=== PATIENT | female | born 1935 | race American Indian/Alaskan Native ===

== ENCOUNTER 2017-11-13 09:26 | Outpatient (CLI) | payer MEDICARE ==
[2017-11-13] MEDS ORDERED: LEXISCAN IV ONE ×2 (10:57)
[2017-11-13 12:16] VITALS: BP 174/80
--- NOTE | 2017-11-27 22:05 | Treadmill Report ---
THALLIUM STRESS TEST LEFT VENTRICLE: Left ventricular chamber size is within normal spread. Perfusion study demonstrates fairly homogeneous uptake of the tracer in all segments. There is a small basal inferior defect, mild intensity, of uncertain significance. Gated analysis demonstrates normal left ventricular systolic function, ejection fraction of 64%. CONCLUSION: Suboptimal perfusion study, no demonstrable ischemic coronary disease. Negative study. JOB# [id number] CA/NTS
== END 2017-11-13 09:27 | disposition home or self-care (01) ==
LOC: CARD 09:26
PROVIDERS: ATTEND Internal Medicine
DX: I25.810 Atherosclerosis of coronary artery bypass graft(s) without angina pectoris (principal)
CPT/HCPCS: 78452; 93017; A9502; J2785

== ENCOUNTER 2018-07-22 12:09 | Emergency (ER) | payer MEDICARE ==
--- NOTE | 2018-07-22 12:17 | Emergency Department Report ---
Chief Complaint: Nausea/Vomiting/Diarrhea Stated Complaint: DEHYDRATION Time Seen by Provider: 07/22/18 12:13 - HPI History of Present Illness: This is a 82 y.o. female that presents to the ER for urinary retention for 12 hours. PMH: DM, CHF, FL, HTN Patient reports everything she eat or drinks come right back up. Reports upper abdominal discomfort. - Exam Vital Signs: Vital Signs 07/22/18 12:13 Temperature 97.8 F Pulse Rate 72 Respiratory 18 Rate Blood Pressure 104/65 O2 Sat by Pulse 96 Oximetry MSE screening note: Focused history and physical exam performed. Due to findings the following was ordered: labs and abdominal series Main ED for further evaluation. ED Disposition for MSE Condition: Stable
[2018-07-22 13:14] LABS: Basophils % (Auto) 0.4 % (0.0-1.8); Eosinophils # (Auto) 0.1 K/mm3 (0.0-0.4); Eosinophils % (Auto) 1.4 % (0.0-4.3); Hematocrit 32.9 % (30.3-42.9); Hemoglobin 10.9 gm/dl (10.1-14.3); Lymphocytes % (Auto) 14.3 % (13.4-35.0); Mean Corpuscular HGB Conc 33 % (30-34); Mean Corpuscular Volume 83 fl (79-97); Monocytes # (Auto) 0.5 K/mm3 (0.0-0.8); Monocytes % (Auto) 6.7 % (0.0-7.3); Platelet Count 201 K/mm3 (140-440); Red Blood Count 3.97 M/mm3 (3.65-5.03); Red Cell Distribution Width 15.3 % (13.2-15.2)
[2018-07-22] MEDS ORDERED: NACL 0.9% 1000 ML 1,000 ML IV ONE ×2 (13:32→15:56)
[2018-07-22 13:40] LABS: Albumin 3.5 g/dL (3.9-5); Calcium 8.8 mg/dL (8.4-10.2)
--- NOTE | 2018-07-22 13:41 | Emergency Department Report ---
ED N/V/D HPI - General Chief complaint: Nausea/Vomiting/Diarrhea Stated complaint: DEHYDRATION Time Seen by Provider: 07/22/18 12:13 Source: patient Mode of arrival: Wheelchair Limitations: Physical Limitation - History of Present Illness Initial comments: Mrs. Leslie Schafer is a very pleasant 82-year-old female with history of diabetes mellitus, coronary artery disease, dyslipidemia who presents with nausea and vomiting after outpatient surgery on . Human Services Supervisor Dr. Wale Pino perform outpatient surgery on her right foot. She had multiple severely curled toes which required straightening and pinning. THe procedure was performed with local anesthesia. Foot Miter Operator was on [facility]. 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 She continued to have nausea vomiting for the past 3 days. She has not urinated since 1 AM this morning. She does have a history of dehydration. She denies abdominal pain. Denies fever. She was prescribed Keflex and tramadol. She does have drug intolerance. Morphine causes her to hallucinate. Codeine causes her to have severe nausea and vomiting. Medications include: Pioglitazone 30 mg Tolterodine 4 mg Clopidogrel 75 mg Clonidine 0.2 mg Isosorbide mononitrate 60 mg Isosorbide dinitrate 20 mg Metformin 1000 mg complaint: nausea, vomiting -: Gradual, days(s) (3) Description of Vomiting: food contents Associated Abdominal Pain: No Consistency: constant Worsens with: eating Context: recent anitbiotic use, recent surgery/procedure - Related Data Home Medications Medication Instructions Recorded Confirmed Last Taken Aspirin EC 81 mg PO QDAY 06/25/13 06/25/13 06/25/13 Atenolol [Tenormin] 1,000 mg PO BID 06/25/13 06/25/13 06/25/13 Atorvastatin [Lipitor] 40 mg PO DAILY 06/25/13 06/25/13 06/25/13 Clopidogrel [Plavix] 75 mg PO DAILY 06/25/13 06/25/13 06/25/13 Isosorbide Mononitrate [Isosorbide 60 mg PO QDAY 06/25/13 06/25/13 06/25/13 Mononitrate ER (IMDUR)] Losartan [Cozaar] 100 mg PO QDAY 06/25/13 06/25/13 06/25/13 08:00 1000mg Metformin HCl [Glucophage] 1,000 mg PO BID 06/25/13 06/25/13 06/25/13 amLODIPine [Norvasc] 5 mg PO DAILY 06/25/13 06/25/13 06/25/13 cloNIDine [Catapres] 0.2 mg PO BID 06/25/13 06/25/13 06/25/13 Previous Rx's Medication Instructions Recorded Last Taken Type Nitroglycerin [Nitrostat] 0.4 mg SL Q5M #30 tab 06/28/13 Unknown Rx Ondansetron [Zofran Odt] 4 mg PO Q8HR PRN #10 tab.rapdis 07/22/18 Unknown Rx Allergies Allergy/AdvReac Type Severity Reaction Status Date / Time codeine Allergy Vomiting Verified 07/22/18 12:11 morphine AdvReac Unknown Verified 07/22/18 12:11 ED Review of Systems ROS: Stated complaint: DEHYDRATION Other details as noted in HPI Comment: All other systems reviewed and negative Constitutional: denies: fever, malaise Respiratory: denies: cough Cardiovascular: denies: chest pain Gastrointestinal: nausea, vomiting. denies: abdominal pain, diarrhea Genitourinary: other (decreased urinary output) ED Past Medical Hx - Past Medical History Previous Medical History?: Yes Hx Hypertension: Yes Hx Heart Attack/AMI: Yes Hx Congestive Heart Failure: Yes Hx Diabetes: Yes - Surgical History Past Surgical History?: Yes Hx Coronary Stent: Yes Additional Surgical History: right foot surgery - Social History Smoking Status: Never Smoker Substance Use Type: None - Medications Home Medications: Home Medications Medication Instructions Recorded Confirmed Last Taken Type Aspirin EC 81 mg PO QDAY 06/25/13 06/25/13 06/25/13 History Atenolol [Tenormin] 1,000 mg PO BID 06/25/13 06/25/13 06/25/13 History Atorvastatin [Lipitor] 40 mg PO DAILY 06/25/13 06/25/13 06/25/13 History Clopidogrel [Plavix] 75 mg PO DAILY 06/25/13 06/25/13 06/25/13 History Isosorbide Mononitrate [Isosorbide 60 mg PO QDAY 06/25/13 06/25/13 06/25/13 History Mononitrate ER (IMDUR)] Losartan [Cozaar] 100 mg PO QDAY 06/25/13 06/25/13 06/25/13 08:00 History 1000mg Metformin HCl [Glucophage] 1,000 mg PO BID 06/25/13 06/25/13 06/25/13 History amLODIPine [Norvasc] 5 mg PO DAILY 06/25/13 06/25/13 06/25/13 History cloNIDine [Catapres] 0.2 mg PO BID 06/25/13 06/25/13 06/25/13 History Nitroglycerin [Nitrostat] 0.4 mg SL Q5M #30 tab 06/28/13 Unknown Rx Ondansetron [Zofran Odt] 4 mg PO Q8HR PRN #10 tab.rapdis 07/22/18 Unknown Rx ED Physical Exam - General Limitations: Physical Limitation General appearance: alert, in no apparent distress - Head Head exam: Present: atraumatic, normocephalic - Eye Eye exam: Present: normal appearance - ENT ENT exam: Present: mucous membranes dry - Neck Neck exam: Present: normal inspection - Respiratory Respiratory exam: Present: normal lung sounds bilaterally. Absent: respiratory distress, wheezes, rales, rhonchi - Cardiovascular Cardiovascular Exam: Present: regular rate, normal rhythm, normal heart sounds. Absent: systolic murmur, diastolic murmur, rubs, gallop - GI/Abdominal GI/Abdominal exam: Present: soft, normal bowel sounds. Absent: distended, tenderness, guarding, rebound - Extremities Exam Extremities exam: Present: other (right foot: clean soft bandage covering entire foot, orthopedic shoe in place) - Neurological Exam Neurological exam: Present: alert, oriented X3 - Psychiatric Psychiatric exam: Present: normal affect, normal mood - Skin Skin exam: Present: warm, dry, intact, normal color. Absent: rash ED Course Vital Signs 07/22/18 07/22/18 07/22/18 12:13 13:13 14:00 Temperature 97.8 F Pulse Rate 72 65 66 Respiratory 18 16 16 Rate Blood Pressure 104/65 Blood Pressure 136/67 149/57 [Left] O2 Sat by Pulse 96 98 97 Oximetry 07/22/18 07/22/18 07/22/18 15:15 15:17 16:45 Temperature Pulse Rate 67 74 Respiratory 16 16 14 Rate Blood Pressure Blood Pressure 161/64 182/69 [Left] O2 Sat by Pulse 98 97 Oximetry 07/22/18 17:25 Temperature Pulse Rate 70 Respiratory Rate Blood Pressure Blood Pressure 169/112 [Left] O2 Sat by Pulse Oximetry ED Medical Decision Making - Lab Data Result diagrams: 07/22/18 12:26 07/22/18 12:26 Laboratory Results - last 24 hr 07/22/18 07/22/18 07/22/18 12:26 12:26 15:17 WBC 6.9 RBC 3.97 Hgb 10.9 Hct 32.9 MCV 83 MCH 27 L MCHC 33 RDW 15.3 H Plt Count 201 Lymph % (Auto) 14.3 [place] % (Auto) 6.7 Eos % (Auto) 1.4 Baso % (Auto) 0.4 Lymph # 1.0 L [place] # 0.5 Eos # 0.1 Baso # 0.0 Seg Neutrophils % 77.2 H Seg Neutrophils # 5.3 Sodium 128 L Potassium 4.4 Chloride 88.3 L Carbon Dioxide 25 Anion Gap 19 BUN 20 H Creatinine 1.6 H Estimated GFR 37 BUN/Creatinine Ratio 13 Glucose 158 H Calcium 8.8 Total Bilirubin 0.30 AST 20 ALT 17 Alkaline Phosphatase 81 Total Protein 6.7 Albumin 3.5 L Albumin/Globulin Ratio 1.1 Urine Color Yellow Urine Turbidity Clear Urine pH 5.0 Ur Specific [place] 1.006 Urine Protein <15 mg/dl Urine Glucose (UA) Neg Urine Ketones Neg Urine Blood Neg Urine Nitrite Neg Urine Bilirubin Neg Urine Urobilinogen < 2.0 Ur Leukocyte Esterase Neg Urine WBC (Auto) 1.0 Urine RBC (Auto) 3.0 U Epithel Cells (Auto) 2.0 Urine Mucus Few - Radiology Data Radiology results: report reviewed chest abdomen no obstruction, large amount of stool in colon - Medical Decision Making 1. dehydration, hypovolemic hyponatremia, given 2 liters IVF in the ED. Feels much better. Has urinated frequently after receiving IVF 2. nausea/vomiting no vomiting occurred in ED, suspect tramadol as the cause, I do not suspect infection Rx: ana cristina, recommended Tylenol for pain Critical care attestation.: If time is entered above; I have spent that time in minutes in the direct care of this critically ill patient, excluding procedure time. ED Disposition Clinical Impression: Dehydration, Adverse drug effect Disposition: [id number] OP ADMIT IP TO THIS HOSP Is pt being admited?: No Does the pt Need Aspirin: No Condition: Stable Instructions: Dehydration (ED) Prescriptions: Ondansetron [Zofran Odt] 4 mg PO Q8HR PRN #10 tab.rapdis PRN Reason: Nausea
--- NOTE | 2018-07-22 14:30 | XRay Report ---
PROCEDURE: XR ABD SERIES W CXR 1V TECHNIQUE: Frontal view of the chest and 2 views of the abdomen HISTORY: r/o SBO COMPARISONS: None. FINDINGS: The cardiomediastinal silhouette is normal in appearance. Vascular clips are present over the mediast inum. Streaky atelectasis versus scarring in the right lower lobe. No pleural effusion or pneumothorax. Nonobstructive bowel gas pattern. Large amount of stool within the colon. No free air. No abnormal op acification. No organomegaly. No acute bony or soft tissue abnormality. IMPRESSION: Nonobstructive bowel gas pattern. Large amount of stool within the colon. This document is electronically signed by Tania Browne MD., Jul 22 2018 02:28:35 PM ET
[2018-07-22 15:56] LABS: Bilirubin,Urine NEG (Negative); Blood,Urine NEG (Negative); Color,Urine Yellow (Yellow); Mucus,Urine FEW /HPF; Protein,Urine <15 mg/dL mg/dL (Negative); Urobilinogen,Urine < 2.0 mg/dL (<2.0)
[2018-07-22 20:07] VITALS: BP 143/59
== END 2018-07-22 20:06 | disposition admitted as inpatient to this hospital (09) ==
LOC: ED 12:09
DX: E86.0 Dehydration (principal); T36.1X5A Adverse effect of cephalosporins and other beta-lactam antibiotics, initial encounter; I11.0 Hypertensive heart disease with heart failure; I50.9 Heart failure, unspecified; E11.9 Type 2 diabetes mellitus without complications; Z95.1 Presence of aortocoronary bypass graft; Z79.82 Long term (current) use of aspirin; Z79.02 Long term (current) use of antithrombotics/antiplatelets; Z88.5 Allergy status to narcotic agent; Y92.89 Other specified places as the place of occurrence of the external cause
CPT/HCPCS: 36415; 74022; 80053; 81001; 85025; 96360; 96361; 99284; J7030